=== PATIENT | female | born 1950 | race Caucasian/White ===

== ENCOUNTER 2018-12-08 20:47 | Emergency (ER) | payer MEDICAID ==
[~2018-12-08] VITALS: Ht 160 cm; Wt 68.0 kg
[2018-12-08 20:56] VITALS: Ht 160 cm; Wt 68.0 kg
[2018-12-08 23:16] VITALS: BP 139/77
== END 2018-12-08 23:19 | disposition home or self-care (01) ==
LOC: ED 20:47
DX: S52.502A Unspecified fracture of the lower end of left radius, initial encounter for closed fracture (principal); E11.9 Type 2 diabetes mellitus without complications; I10 Essential (primary) hypertension; V00.131A Fall from skateboard, initial encounter; Y93.51 Activity, roller skating (inline) and skateboarding; Y92.89 Other specified places as the place of occurrence of the external cause; Y99.8 Other external cause status
CPT/HCPCS: J1885; Q0092